=== PATIENT | male | born 1955 | race Caucasian/White ===

== ENCOUNTER 2016-06-26 06:28 | Day surgery (SDC) | payer OTHER ==
[~2016-06-26] VITALS: Ht 175.3 cm; Wt 139.0 kg
[~2016-06-26 06:28] MED LIST: ALLO100T30 PO; ATOR40TA PO; CALC0.25 PO; DOCU-30 PO; ERGO500017 PO; FURO-92 PO; FURO40TA6 PO; INSU100C SQ-INSULIN; INSU100V8 SQ; LOSA100T6 PO; Losartan Potassium PO; METO-99 PO; METO25TA35 PO
[2016-06-26] MEDS ORDERED: BUPIVACAINE/PF 0.5% ONE (06:33)
[2016-06-26] MEDS ORDERED: PROTAMINE SULFATE 10 MG/ML, 5ML ONE (06:33)
[2016-06-26] MEDS ORDERED: HEPARIN 1,000 UNITS/ML, 10ML ONE (06:33)
[2016-06-26] MEDS ORDERED: THROMBIN 5,000 UNIT VIAL TP ONE (06:33)
[2016-06-26] MEDS ORDERED: FENTANYL PF 250 MCG/5ML ONE (08:57)
[2016-06-26] MEDS ORDERED: MIDAZOLAM 1 MG/ML, 2ML ONE (08:58)
[2016-06-26] MEDS ORDERED: FURO80TA3 PO (09:05)
[2016-06-26] MEDS ORDERED: LOSA100T6 PO (09:05)
[2016-06-26] MEDS ORDERED: INSU100V8 SQ (09:05)
[2016-06-26] MEDS ORDERED: ERGO500017 PO (09:05)
[2016-06-26] MEDS ORDERED: ASPI-496 PO (09:05)
[2016-06-26] MEDS ORDERED: ALBU18HF INH (09:05)
[2016-06-26] MEDS ORDERED: METO25TA35 PO (09:05)
[2016-06-26] MEDS ORDERED: ALLO100T30 PO (09:05)
[2016-06-26] MEDS ORDERED: CALC0.5C PO (09:05)
[2016-06-26 09:06] VITALS: BP 115/62
[2016-06-26] MEDS ORDERED: SODIUM CHLORIDE 0.9% 1,000 ML IV SCH (09:27)
[2016-06-26] MEDS ORDERED: PROPOFOL 10 MG/ML, 20ML ONE (09:40)
[2016-06-26] MEDS ORDERED: CEFAZOLIN 1,000 MG ONE (09:40)
[2016-06-26] MEDS ORDERED: ONDANSETRON 2MG/ML, 2ML ONE (09:40)
[2016-06-26] MEDS ORDERED: HYDROmorphone 1 MG/ML, 1ML IV PRN (10:30)
[2016-06-26] MEDS ORDERED: ACETAMINOPHEN 325 MG TABLET PO PRN (10:30)
[2016-06-26] MEDS ORDERED: ALBUTEROL SULFATE 2.5 MG/3 ML NPPB PRN (10:30)
[2016-06-26] MEDS ORDERED: ONDANSETRON 2MG/ML, 2ML IVPush PRN (10:30)
[2016-06-26] MEDS ORDERED: OXYcodone 5 MG/5 ML ORAL.SOL UDC PO PRN (10:30)
[2016-06-26] MEDS ORDERED: EPHEDRINE 50 MG/ML, 1ML IVPush PRN (10:30)
[2016-06-26] MEDS ORDERED: hydrALAzine 20 MG/ML, 1ML IV PRN (10:30)
[2016-06-26] MEDS ORDERED: METOPROLOL 1 MG/ML, 5ML IV PRN (10:30)
[2016-06-26] MEDS ORDERED: FENTANYL PF 100 MCG/2ML IV PRN (10:30)
[2016-06-26] MEDS ORDERED: LABETALOL 5MG/ML, 20ML IV PRN (10:30)
== END 2016-06-26 12:20 | disposition home or self-care (01) ==
LOC: OUT 06:28
PROVIDERS: ATTEND Surgery Vascular Surgery
DX: E11.22 Type 2 diabetes mellitus with diabetic chronic kidney disease (principal); I12.0 Hypertensive chronic kidney disease with stage 5 chronic kidney disease or end stage renal disease; N18.6 End stage renal disease; G47.33 Obstructive sleep apnea (adult) (pediatric)
CPT/HCPCS: 36415; 36821; 80047; J0690; J1644; J2250; J2405; J2704; J3010; J7030; J2720; J3490

== ENCOUNTER 2017-02-03 15:59 | Inpatient (IN) | payer OTHER, MEDICARE ==
[~2017-02-03] VITALS: Ht 170.2 cm; Wt 142.0 kg
[~2017-02-03 15:59] MED LIST changes: +ALBU18HF INH; +ASPI-496 PO; +CALC0.5C9 PO; +DOCU-131 PO; -DOCU-30 PO; +FURO80TA3 PO
[2017-02-03] MEDS ORDERED: SODIUM CHLORIDE 0.9% 1,000ML IVBOLUS ONE (17:00)
[2017-02-03] MEDS ORDERED: SODIUM CHLORIDE FLUSH 10ML SYR IVF ONE (17:00)
[2017-02-03 17:46] LABS: BLOOD UREA NITROGEN 39 mg/dL (7-18)
[2017-02-03 18:23] LABS: HEMATOCRIT 32.9 % (39.2-51.8); HEMOGLOBIN 11.1 g/dL (13.7-18.0); WHITE BLOOD COUNT 15.2 x10^3/uL (3.4-10)
[2017-02-03 18:28] LABS: PATH.CAST-FLAG NOT PRESENT; SPERM-FLAG NOT PRESENT; SRC-FLAG NOT PRESENT; XTAL-FLAG NOT PRESENT; YLC-FLAG NOT PRESENT
[2017-02-03] MEDS ORDERED: CEFTRIAXONE PMX 1GM/50ML 50 ML ONE (18:50)
[2017-02-03] MEDS ORDERED: SODIUM CHLORIDE 0.9%, 500ML IVBOLUS ONE (19:00)
[2017-02-03] MEDS ORDERED: AZITHROMYCIN 500 MG in SODIUM CHLORIDE 0.9% 250 ML IV ONE (19:00)
[2017-02-03] MEDS ORDERED: CEFTRIAXONE PMX 1GM/50ML 50 ML IV ONE (19:00)
[2017-02-03] MEDS ORDERED: INSU200I4 SQ (19:11)
[2017-02-03] MEDS ORDERED: SEVE800T8 PO (19:11)
[2017-02-03] MEDS: HEPARIN 5,000 UNITS/ML, 1ML SQ SCH (19:30)
[2017-02-03] MEDS ORDERED: ONDANSETRON 2MG/ML, 2ML IVPush PRN (19:30)
[2017-02-03] MEDS ORDERED: ACETAMINOPHEN 325 MG TABLET PO PRN (19:30)
[2017-02-03] MEDS ORDERED: TEMAZEPAM 15 MG CAPSULE PO PRN (19:30)
[2017-02-03 20:59] VITALS: BP 119/70
[2017-02-03] MEDS: SEVELAMER 800MG TABLET PO SCH (21:00)
[2017-02-03] MEDS: INSULIN ASPART 100 UNITS/ML, PEN SQ-INSULIN SCH (21:00)
[2017-02-03] MEDS: SODIUM CHLORIDE 0.9% 1,000 ML IV SCH (21:14)
[2017-02-03] MEDS: ALBUTEROL SULFATE 2.5 MG/3 ML NPPB SCH (21:30)
[2017-02-03] MEDS: INSULIN DETEMIR 100 UNITS/ML, PEN SQ-INSULIN SCH (22:21)
[2017-02-04 00:35] VITALS: BP 135/79
[2017-02-04] MEDS: HEPARIN 5,000 UNITS/ML, 1ML SQ SCH ×3 (03:30→16:26)
[2017-02-04] MEDS: SODIUM CHLORIDE 0.9% 1,000 ML IV SCH ×2 (04:28→10:20)
[2017-02-04 05:16] LABS: HEMOGLOBIN 10.1 g/dL (13.7-18.0); WHITE BLOOD COUNT 11.3 x10^3/uL (3.4-10)
[2017-02-04 05:24] LABS: BLOOD UREA NITROGEN 42 mg/dL (7-18)
[2017-02-04] MEDS: CEFTRIAXONE PMX 1GM/50ML 50 ML IV SCH (06:07)
[2017-02-04 07:00] VITALS: BP 128/81
[2017-02-04] MEDS: INSULIN ASPART 100 UNITS/ML, PEN SQ-INSULIN SCH ×4 (07:00→21:00)
[2017-02-04] MEDS: SEVELAMER 800MG TABLET PO SCH ×5 (08:19→20:59)
[2017-02-04] MEDS: ALLOPURINOL 100 MG TABLET PO SCH (08:20)
[2017-02-04] MEDS: ASPIRIN 81 MG TABLET EC PO SCH (08:20)
[2017-02-04] MEDS: AZITHROMYCIN 500 MG TABLET PO SCH (08:20)
[2017-02-04] MEDS: ALBUTEROL SULFATE 2.5 MG/3 ML NPPB SCH (08:51)
[2017-02-04 14:07] VITALS: BP 106/64
[2017-02-04] MEDS: FUROSEMIDE 40 MG TABLET PO SCH (16:24)
[2017-02-04 19:10] VITALS: BP 142/82
[2017-02-04] MEDS: INSULIN DETEMIR 100 UNITS/ML, PEN SQ-INSULIN SCH (21:02)
[2017-02-05 01:02] VITALS: BP 117/65
[2017-02-05] MEDS: HEPARIN 5,000 UNITS/ML, 1ML SQ SCH ×3 (03:52→21:51)
[2017-02-05] MEDS: CEFTRIAXONE PMX 1GM/50ML 50 ML IV SCH (05:59)
[2017-02-05 07:42] VITALS: BP 105/57
[2017-02-05] MEDS: ASPIRIN 81 MG TABLET EC PO SCH (08:52)
[2017-02-05] MEDS: AZITHROMYCIN 500 MG TABLET PO SCH (08:52)
[2017-02-05] MEDS: ALLOPURINOL 100 MG TABLET PO SCH (08:52)
[2017-02-05] MEDS: SEVELAMER 800MG TABLET PO SCH ×6 (08:52→21:50)
[2017-02-05] MEDS: INSULIN ASPART 100 UNITS/ML, PEN SQ-INSULIN SCH ×4 (08:53→21:51)
[2017-02-05] MEDS: FUROSEMIDE 40 MG TABLET PO SCH ×2 (08:53→16:51)
[2017-02-05] MEDS ORDERED: ALBUTEROL SULFATE 2.5 MG/3 ML NPPB PRN (09:00)
[2017-02-05 16:00] VITALS: BP 116/73
[2017-02-05 18:51] VITALS: BP 130/81
[2017-02-05] MEDS: INSULIN DETEMIR 100 UNITS/ML, PEN SQ-INSULIN SCH (21:52)
[2017-02-06] MEDS ORDERED: POLYETHYLENE GLYCOL 17 GM PACKET PO PRN (00:30)
[2017-02-06 02:46] VITALS: BP 99/67
[2017-02-06] MEDS: HEPARIN 5,000 UNITS/ML, 1ML SQ SCH ×2 (04:19→12:24)
[2017-02-06] MEDS: CEFTRIAXONE PMX 1GM/50ML 50 ML IV SCH (06:35)
[2017-02-06] MEDS: SEVELAMER 800MG TABLET PO SCH ×3 (06:36→14:00)
[2017-02-06] MEDS: INSULIN ASPART 100 UNITS/ML, PEN SQ-INSULIN SCH ×2 (07:00→11:05)
[2017-02-06 07:47] VITALS: BP 114/69
[2017-02-06] MEDS: FUROSEMIDE 40 MG TABLET PO SCH (08:25)
[2017-02-06] MEDS: ALLOPURINOL 100 MG TABLET PO SCH (08:25)
[2017-02-06] MEDS: AZITHROMYCIN 500 MG TABLET PO SCH (08:25)
[2017-02-06] MEDS: ASPIRIN 81 MG TABLET EC PO SCH (08:26)
[2017-02-06] MEDS ORDERED: DOCUSATE 100 MG CAPSULE PO SCH (09:00)
[2017-02-06 09:48] LABS: HEP B SURF. AB < 3.1 mIU/mL (0.0-10.0)
[2017-02-06] MEDS ORDERED: CEFD300C37 PO (12:22)
[2017-02-06] MEDS ORDERED: AZIT500T5 PO (12:22)
[2017-02-06 13:00] VITALS: BP 123/72
== END 2017-02-06 15:05 | disposition home or self-care (01) | DRG 871 ==
LOC: SUATTDRO 18:56 → ED 19:02 → EDIP 19:15 → 3NE 20:39 → 4EST 02-05 11:28 → DCLOUNGE 02-06 14:53
PROVIDERS: ADMIT Internal Medicine; ATTEND Family Medicine
PROC: 5A09357 Assistance with Respiratory Ventilation, Less than 24 Consecutive Hours, Continuous Positive Airway Pressure (ICD-10-PCS; 2017-02-03)
PROC: 5A1D70Z Performance of Urinary Filtration, Intermittent, Less than 6 Hours Per Day (ICD-10-PCS; principal; 2017-02-05)
DX: A41.9 Sepsis, unspecified organism (principal); E43 Unspecified severe protein-calorie malnutrition; J18.0 Bronchopneumonia, unspecified organism; I13.2 Hypertensive heart and chronic kidney disease with heart failure and with stage 5 chronic kidney disease, or end stage renal disease; J18.9 Pneumonia, unspecified organism; E11.22 Type 2 diabetes mellitus with diabetic chronic kidney disease; N18.6 End stage renal disease; E66.2 Morbid (severe) obesity with alveolar hypoventilation; Z68.42 Body mass index [BMI] 45.0-49.9, adult; I50.9 Heart failure, unspecified; E78.5 Hyperlipidemia, unspecified; M10.9 Gout, unspecified; Z99.2 Dependence on renal dialysis; Z99.81 Dependence on supplemental oxygen; Z88.8 Allergy status to other drugs, medicaments and biological substances; Z91.041 Radiographic dye allergy status
CPT/HCPCS: 36415; 71010; 80048; 81001; 82040; 82962; 83605; 83735; 83880; 85025; 86704; 86706; 87040; 87340; 93005; 94640; 94660; 96365; 96368; J0456; J0696; J1644; J1815; J7613; J7030; J7040; J7050

== ENCOUNTER 2017-02-20 20:36 | Inpatient (IN) | payer OTHER, MEDICARE ==
[~2017-02-20] VITALS: Ht 175.3 cm; Wt 135.3 kg
[~2017-02-20 20:36] MED LIST changes: -LEVO750T6 PO
[2017-02-20] MEDS ORDERED: LEVOFLOXACIN/PMX 750MG/150ML 150 ML IVPB ONE (22:30)
[2017-02-20] MEDS ORDERED: SODIUM CHLORIDE FLUSH 10ML SYR IVF ONE (22:30)
[2017-02-20 22:49] LABS: BLOOD UREA NITROGEN 50 mg/dL (7-18)
[2017-02-20] MEDS ORDERED: LEVOFLOXACIN/PMX 750MG/150ML 150 ML ONE (22:55)
[2017-02-20 23:22] LABS: IS PT STATUS REG ER OR PRE ER? YES
[2017-02-21] MEDS ORDERED: ACETAMINOPHEN 325 MG TABLET PO PRN (00:30)
[2017-02-21] MEDS ORDERED: DOCUSATE 100 MG CAPSULE PO PRN (00:30)
[2017-02-21] MEDS ORDERED: ONDANSETRON ODT 4 MG PO PRN (00:30)
[2017-02-21] MEDS ORDERED: hydrALAzine 20 MG/ML, 1ML IVPush PRN (00:30)
[2017-02-21] MEDS ORDERED: TEMAZEPAM 15 MG CAPSULE PO PRN (00:30)
[2017-02-21 00:52] LABS: HEMATOCRIT 31.2 % (39.2-51.8); HEMOGLOBIN 10.2 g/dL (13.7-18.0); WHITE BLOOD COUNT 9.7 x10^3/uL (3.4-10)
[2017-02-21] MEDS ORDERED: ALBUTEROL HFA 90 MCG/SPRAY INH PRN (01:00)
[2017-02-21] MEDS ORDERED: METOPROLOL TARTRATE 25 MG TABLET PO SCH (01:00)
[2017-02-21] MEDS ORDERED: ERGOCALCIFEROL 50,000 UNIT CAPSULE PO SCH (01:00)
[2017-02-21] MEDS ORDERED: INSULIN ASPART 100 UNITS/ML, PEN SQ-INSULIN SCH (01:00)
[2017-02-21] MEDS ORDERED: HEPARIN 5,000 UNITS/ML, 1ML ONE (02:05)
[2017-02-21] MEDS: HEPARIN 5,000 UNITS/ML, 1ML SQ SCH ×4 (02:12→21:53)
[2017-02-21] MEDS: SEVELAMER 800MG TABLET PO SCH ×6 (04:14→21:00)
[2017-02-21] MEDS: ATORVASTATIN 40 MG TABLET PO SCH ×2 (04:14→21:00)
[2017-02-21] MEDS: INSULIN ASPART 100 UNITS/ML, 3ML PEN LOW DOSE SS SQ-INSULIN SCH ×4 (04:20→20:09)
[2017-02-21] MEDS: INSULIN DEGLUDEC SQ SCH (09:00)
[2017-02-21] MEDS ORDERED: CALCITRIOL 0.25 MCG CAPSULE PO SCH (09:00)
[2017-02-21] MEDS ORDERED: INSULIN DEGLUDEC SQ SCH (09:00)
[2017-02-21] MEDS: FUROSEMIDE 80 MG TABLET PO SCH ×2 (09:00→21:00)
[2017-02-21 12:38] VITALS: BP 122/74
[2017-02-21] MEDS: ASPIRIN 81 MG TABLET EC PO SCH (13:41)
[2017-02-21] MEDS: ALLOPURINOL 100 MG TABLET PO SCH (13:41)
[2017-02-21 15:22] VITALS: BP 124/78
[2017-02-21 21:00] VITALS: BP 135/84
[2017-02-21] MEDS ORDERED: INSULIN DEGLUDEC 22 UNIT SQ SCH (21:00)
[2017-02-21] MEDS ORDERED: LEVOFLOXACIN/PMX 750MG/150ML 150 ML IV SCH (23:30)
[2017-02-22 01:00] VITALS: BP 100/65
[2017-02-22] MEDS: HEPARIN 5,000 UNITS/ML, 1ML SQ SCH ×2 (05:30→14:18)
[2017-02-22] MEDS: INSULIN ASPART 100 UNITS/ML, 3ML PEN LOW DOSE SS SQ-INSULIN SCH ×2 (07:00→14:15)
[2017-02-22 07:30] VITALS: BP 102/56
[2017-02-22] MEDS: SEVELAMER 800MG TABLET PO SCH ×2 (08:36→14:14)
[2017-02-22 08:38] LABS: HEMATOCRIT 32.2 % (39.2-51.8); HEMOGLOBIN 10.7 g/dL (13.7-18.0)
[2017-02-22 08:49] LABS: BLOOD UREA NITROGEN 41 mg/dL (7-18)
[2017-02-22] MEDS: INSULIN DEGLUDEC SQ SCH (09:00)
[2017-02-22] MEDS: FUROSEMIDE 80 MG TABLET PO SCH (09:00)
[2017-02-22] MEDS: ASPIRIN 81 MG TABLET EC PO SCH (09:42)
[2017-02-22] MEDS: ALLOPURINOL 100 MG TABLET PO SCH (09:42)
[2017-02-22] MEDS ORDERED: METOPROLOL TARTRATE 25 MG TABLET PO PRN (12:00)
[2017-02-22] MEDS ORDERED: LEVO750T6 PO (14:32)
[2017-02-22 15:36] VITALS: BP 121/84
[2017-02-23] MEDS ORDERED: LEVOFLOXACIN/PMX 750MG/150ML 150 ML IV SCH (22:00)
== END 2017-02-22 16:20 | disposition home or self-care (01) | DRG 193 ==
LOC: ED 23:59 → EDIP 02-21 00:50 → 5SO 02-21 08:44 → DCLOUNGE 02-22 16:05
PROVIDERS: ADMIT Hospitalist; ATTEND Hospitalist
PROC: 5A1D70Z Performance of Urinary Filtration, Intermittent, Less than 6 Hours Per Day (ICD-10-PCS; principal; 2017-02-21)
DX: J18.9 Pneumonia, unspecified organism (principal); N18.6 End stage renal disease; I13.2 Hypertensive heart and chronic kidney disease with heart failure and with stage 5 chronic kidney disease, or end stage renal disease; E11.22 Type 2 diabetes mellitus with diabetic chronic kidney disease; E66.2 Morbid (severe) obesity with alveolar hypoventilation; Z68.41 Body mass index [BMI] 40.0-44.9, adult; I50.1 Left ventricular failure, unspecified; Z88.3 Allergy status to other anti-infective agents; Z88.2 Allergy status to sulfonamides; D63.1 Anemia in chronic kidney disease; E78.5 Hyperlipidemia, unspecified; F17.200 Nicotine dependence, unspecified, uncomplicated; I34.0 Nonrheumatic mitral (valve) insufficiency; I35.8 Other nonrheumatic aortic valve disorders; I45.10 Unspecified right bundle-branch block; M10.9 Gout, unspecified; R09.02 Hypoxemia; Z79.4 Long term (current) use of insulin; Z82.49 Family history of ischemic heart disease and other diseases of the circulatory system; Z83.3 Family history of diabetes mellitus; Z99.2 Dependence on renal dialysis
CPT/HCPCS: 36415; 80048; 82040; 82962; 83880; 84484; 85025; 93005; 93306; 96365; 96366; 96372; J1644; J1815; J1956

== ENCOUNTER → 2017-02-20 | Outpatient (CLI) | payer OTHER, MEDICARE ==
[~2017-02-20] MED LIST changes: +AZIT500T5 PO; +CEFD300C37 PO; +INSU200I4 SQ; +LEVO750T6 PO; +SEVE800T8 PO
[2017-02-20 15:36] LABS: HEMATOCRIT 31.8 % (39.2-51.8); HEMOGLOBIN 10.4 g/dL (13.7-18.0); WHITE BLOOD COUNT 9.9 x10^3/uL (3.4-10)
== END | disposition home or self-care (01) ==
LOC: CFH 13:41
PROVIDERS: ATTEND Physician Assistant Medical
DX: J18.9 Pneumonia, unspecified organism (principal); I51.7 Cardiomegaly; J90 Pleural effusion, not elsewhere classified
CPT/HCPCS: 36415; 71020; 85025

== ENCOUNTER 2017-04-09 09:12 | Day surgery (SDC) | payer OTHER, MEDICARE ==
[~2017-04-09] VITALS: Ht 177.8 cm; Wt 129.0 kg
[~2017-04-09 09:12] MED LIST changes: +BUPIVACAINE/PF 0.5% ONE; +HEPARIN 1,000 UNITS/ML, 10ML ONE; +LEVO750T6 PO; +PROTAMINE SULFATE 10 MG/ML, 5ML ONE; +THROMBIN 5,000 UNIT VIAL TP ONE
[2017-04-09] MEDS ORDERED: LACTATED RINGERS 1,000 ML IV SCH (09:44)
[2017-04-09 09:45] VITALS: BP 112/72
[2017-04-09] MEDS ORDERED: PLEASE ENTER HEIGHT AND WEIGHT MC SCH (10:00)
[2017-04-09] MEDS ORDERED: SODIUM CHLORIDE 0.9% 1,000 ML IV SCH (10:53)
[2017-04-09] MEDS ORDERED: PHENYLEPHRINE 10 MG/ML ONE (13:07)
[2017-04-09] MEDS ORDERED: FENTANYL PF 100 MCG/2ML ONE ×2 (13:29→13:33)
[2017-04-09] MEDS ORDERED: HYDROmorphone 1 MG/ML, 1ML IV PRN (13:30)
[2017-04-09] MEDS ORDERED: ACETAMINOPHEN 325 MG TABLET PO PRN (13:30)
[2017-04-09] MEDS ORDERED: DIAZEPAM 5 MG/ML, 2ML IVPush PRN (13:30)
[2017-04-09] MEDS ORDERED: FENTANYL PF 100 MCG/2ML IV PRN (13:30)
[2017-04-09] MEDS ORDERED: PROMETHAZINE 25 MG/ML, 1ML IV PRN (13:30)
[2017-04-09] MEDS ORDERED: ALBUTEROL/IPRATROPIUM 2.5MG/0.5MG, 3 ML NPPB PRN (13:30)
[2017-04-09] MEDS ORDERED: MIDAZOLAM 1 MG/ML, 2ML IV PRN (13:30)
[2017-04-09] MEDS ORDERED: MEPERIDINE/PF 25MG/0.5ML IVPush PRN (13:30)
[2017-04-09] MEDS ORDERED: hydrALAzine 20 MG/ML, 1ML IV PRN (13:30)
[2017-04-09] MEDS ORDERED: LABETALOL 5MG/ML, 20ML IV PRN (13:30)
[2017-04-09] MEDS ORDERED: OXYcodone 5 MG/5 ML ORAL.SOL UDC PO PRN (13:30)
[2017-04-09] MEDS ORDERED: ONDANSETRON 2MG/ML, 2ML IVPush PRN (13:30)
[2017-04-09] MEDS ORDERED: MIDAZOLAM 1 MG/ML, 2ML ONE (13:33)
[2017-04-09] MEDS ORDERED: ONDANSETRON 2MG/ML, 2ML ONE (13:33)
[2017-04-09] MEDS ORDERED: CEFAZOLIN 1,000 MG ONE ×2 (13:33)
[2017-04-09] MEDS ORDERED: PROPOFOL 10 MG/ML, 20ML ONE (13:33)
[2017-04-09] MEDS ORDERED: DEXAMETHASONE 4 MG/ML, 1ML ONE (13:33)
[2017-04-09] MEDS ORDERED: OXYcodone 5 MG/5 ML ORAL.SOL UDC ONE (14:41)
[2017-04-09] MEDS ORDERED: ACETAMINOPHEN 650 MG/20.3 ML UDC ONE (14:41)
== END 2017-04-09 16:40 | disposition home or self-care (01) ==
LOC: OUT 09:12
PROVIDERS: ATTEND Surgery Vascular Surgery
DX: T82.590A Other mechanical complication of surgically created arteriovenous fistula, initial encounter (principal); Y83.8 Other surgical procedures as the cause of abnormal reaction of the patient, or of later complication, without mention of misadventure at the time of the procedure; Y92.89 Other specified places as the place of occurrence of the external cause; I12.0 Hypertensive chronic kidney disease with stage 5 chronic kidney disease or end stage renal disease; E11.22 Type 2 diabetes mellitus with diabetic chronic kidney disease; N18.6 End stage renal disease; E78.5 Hyperlipidemia, unspecified; G47.33 Obstructive sleep apnea (adult) (pediatric); Z88.2 Allergy status to sulfonamides
CPT/HCPCS: 36415; 36556; 36815; 71045; 82962; C1751; J0690; J1100; J1644; J2250; J2370; J2405; J2704; J3010; J7030; 77001; J2720; J3490